=== PATIENT | female | born 1950 ===

== ENCOUNTER 2016-08-31 08:24 | Day surgery (SDC) | payer OTHER, MEDICARE ==
[2016-08-30 14:50] VITALS: BMI 27.8
[2016-08-31 08:46] LABS: URINE APPEARANCE CLEAR; URINE BILIRUBIN NEGATIVE (NEGATIVE); URINE COLOR LTYELLOW; URINE GLUCOSE (UA) NEGATIVE (NEGATIVE); URINE KETONE NEGATIVE (NEGATIVE); URINE NITRITE NEGATIVE (NEGATIVE); URINE PROTEIN NEGATIVE (NEGATIVE); URINE UROBILINOGEN NEGATIVE E.U./dl (0.2-1.0)
[2016-08-31 08:48] LABS: URINE BLOOD 1+ (NEGATIVE); URINE LEUK ESTERASE 2+ (NEGATIVE)
[2016-08-31 08:49] LABS: URINE MUCUS RARE; URINE RBC 3 /hpf (0-3); URINE WBC 32 /hpf (3-5)
[2016-08-31 09:03] LABS: INR 1.16 (0.82-1.09); PROTHROMBIN TIME (PATIENT) 12.8 SEC (9.98-11.88)
[2016-08-31 09:05] LABS: ACTIVATED PTT 33.6 SECONDS (26.9-34.4)
[2016-08-31] MEDS ORDERED: PROPOFOL 20 ML ONE (11:43)
[2016-08-31] MEDS ORDERED: LIDOCAINE HCL/PF 2% SDV 5ML VIAL ONE (11:43)
[2016-08-31] MEDS ORDERED: MIDAZOLAM HCL 2 MG/2 ML SINGLE DOSE VIAL ONE (11:44)
[2016-08-31] MEDS ORDERED: ceFAZolin SODIUM 1 GM VIAL ONE (11:58)
[2016-08-31] MEDS ORDERED: ceFAZolin SODIUM 1 GM VIAL IVPB ONE (12:10)
[2016-08-31] MEDS ORDERED: LIDOCAINE HCL 1%, 10 MG/ML (20ML VIAL) IJ ONE (12:14)
[2016-08-31] MEDS ORDERED: DEXAMETHASONE SOD PHOSPHATE 4 MG/1 ML VIAL ONE (12:18)
[2016-08-31] MEDS ORDERED: ePHEDrine SULFATE 50 MG/1 ML AMPULE ONE (12:33)
[2016-08-31] MEDS ORDERED: BACITRACIN 15 GM TUBE TOPICAL OINTMENT ONE (13:05)
[2016-08-31] MEDS ORDERED: BACITRACIN 15 GM TUBE TOPICAL OINTMENT TP ONE (13:05)
[2016-08-31] MEDS ORDERED: oxyCODONE HCL 5 MG TABLET PO PRN (13:24)
[2016-08-31] MEDS ORDERED: ONDANSETRON 4 MG/2 ML VIAL IVPUSH PRN (13:24)
[2016-08-31] MEDS ORDERED: IBUPROFEN 800 MG/8 ML IJ IVPB PRN (13:24)
[2016-08-31] MEDS ORDERED: ACETAMINOPHEN 1000 MG/100 ML VIAL (NON FORMULARY) IVPB ONE (13:25)
[2016-08-31] MEDS ORDERED: LACTATED RINGERS SOLUTION 1,000 ML IV SCH (13:30)
[2016-08-31] MEDS ORDERED: ACETAMINOPHEN INJECTION 100 ML IVPB ONE (13:43)
[2016-08-31] MEDS ORDERED: morphine CARPU-JECT 2 MG/1 ML DISP.SYRIN ONE ×3 (13:44→14:25)
[2016-08-31] MEDS: morphine CARPU-JECT 2 MG/1 ML DISP.SYRIN IVPUSH PRN ×2 (13:46→14:05)
[2016-08-31] MEDS ORDERED: IBUPROFEN 800 MG/8 ML IJ IVPB ONE (14:12)
[2016-08-31 15:41] VITALS: PULSE 84
[2016-08-31 16:01] VITALS: TEMP 98
[2016-08-31 17:03] VITALS: BP 114/70
--- NOTE | 2016-09-01 10:05 | OP ---
DATE OF OPERATION: DATE OF DICTATION: 08/31/2016 PREOPERATIVE DIAGNOSIS: Right breast papilloma, left breast mass. POSTOPERATIVE DIAGNOSIS: Right breast papilloma, left breast mass. PROCEDURE: Right breast wire localized excision, left breast excision. SURGEON: Shanelle Martinez MD ANESTHESIA: General. ESTIMATED BLOOD LOSS: Minimal. COMPLICATIONS: None. DISPOSITION: Stable. INDICATION: The patient presented with an open area in the periareolar 3 o'clock left breast that was seen to be extruding, initially looked like pus, and she had an infection. This was treated with multiple antibiotics despite continued drainage from the area where she had fat injected into the lumpectomy site. Therefore, it was my recommendation for excision of this area to clean it all out. 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 My recommendation was excision of this as well. The procedure was discussed and all the questions answered. PROCEDURE IN DETAIL: Patient was brought to [facility] in [place] and she was taken to Breast Imaging. Wire was used to localize the clip in the outer right breast and then brought up to the operating room. After induction of general anesthesia and IV antibiotics, both breasts were prepped and draped in sterile fashion. First a right breast excision was performed. A periareolar incision was made in the outer part of the right breast, and the wire was used as a guide to get down to the area which was excised en bloc and sent for specimen radiograph. Hemostasis assured with electrocautery. The specimen radiograph showed the clip and wire to be intact within the specimen. The parenchyma was then approximated with interrupted 2-0 Vicryl, skin approximated with interrupted 3-0 Vicryl and running 4-0 Biosyn. Next, the left breast was approached. A periareolar incision was made to open up the prior incision and all the purulent material was removed. There was a grind of fat necrosis and calcified fat necrosis within this cavity. I tried to excise most if not all of it out and sent as a left breast mass. Hemostasis assured with electrocautery. There was a wide defect left after this, but I left this opened to be finished once her infection is under control to have surgery with Plastic Surgery. After this was completed, the incision was closed with interrupted 3-0 Vicryl and then interrupted 4-0 nylon. Bacitracin was applied as well as Tegaderm. She tolerated the procedure well, was extubated on the operating room table. A mammary bra was put in place, and she was taken to recovery room in good condition. SHANELLE MARTINEZ M.D. [id number]
--- NOTE | 2016-09-04 14:37 | PATH ---
Surgical Pathology Report Patient Name: PARUL VILLAFANA Med. Rec. #: [id number] /Age/Gender: 1950 (Age: 65) / F Account: [id number] Location: [facility] Taken: 08/31/2016 Received: 08/31/2016 Reported: 09/04/2016 Physicians: Shanelle Tyler M.D. Specimen(s) Received A: RT. BREAST EXCISION B: LEFT BREAST MASS Clinical History Right breast papilloma, left breast fat necrosis Final Diagnosis A. RIGHT BREAST, WIDE EXCISION: BENIGN BREAST TISSUE WITH FIBROCYSTIC CHANGES INCLUDING STROMAL FIBROSIS, DUCTAL DILATATION, AND FOCAL ADENOSIS. FAT NECROSIS AND FIBROSIS CONSISTENT WITH PRIOR BIOPSY SITE PRESENT. NO NEOPLASM IDENTIFIED. B. LEFT BREAST, WIDE EXCISION: BENIGN BREAST TISSUE WITH EXTENSIVE STROMAL FIBROSIS AND SCLEROSIS WITH ASSOCIATED ACUTE AND CHRONIC INFLAMMATION, ALONG WITH AREAS OF NECROSIS AND DYSTROPHIC CALCIFICATION. AREAS OF FAT NECROSIS ARE PRESENT. DUCTAL DILATATION IS NOTED. Comment: Recommend correlation with clinical and radiologic findings and follow up as clinically indicated. Electronically Signed Amarjit Mccracken M.D. Gross Description A. Received fresh on an AccuGrid, labeled "right breast excision," is a 4.5 x 3.4 x 1.6 cm irregular, unoriented portion of fibroadipose tissue with a needle localization wire present. There is no skin or nipple present. The specimen is inked green and serially sectioned. Sectioning reveals a pink-triana, ill-defined, firm fibrous tissue. The specimen is entirely and sequentially submitted in 10 cassettes. Total formalin fixation time: Approximately 6 hours B. Received in formalin labeled "left breast mass," is a 6.0 x 5.5 x 1.0 cm aggregate of abundant triana-murry, fragmented, unoriented portions of focally calcified fibrous tissue and necrotic fat as well as portions of fibrous capsule. No discrete masses are identified. Patient Transportation Driver sections are submitted in 7 cassettes. 08/31/201608/31/2016
== END 2016-08-31 17:09 | disposition home or self-care (01) ==
LOC: JASU-SURG 08:24
PROVIDERS: ATTEND Surgery
PROC: 0HBV0ZX Excision of Bilateral Breast, Open Approach, Diagnostic (ICD-10-PCS; principal; 2016-08-31 12:00)
DX: D24.1 Benign neoplasm of right breast (principal); D48.62 Neoplasm of uncertain behavior of left breast
CPT/HCPCS: 19281; 36415; 81003; 81015; 85610; 85730; 88307-TC; 94760